=== PATIENT | female | born 1980 | race Caucasian/White ===

== ENCOUNTER 2017-09-23 09:42 | Outpatient (CLI) | payer BC | END 2017-09-23 09:43 | disposition home or self-care (01) | LOC: DTY/OP 09:42 | PROVIDERS: ATTEND Surgery | DX: E66.01 Morbid (severe) obesity due to excess calories (principal) | CPT/HCPCS: 97802 ==

== ENCOUNTER 2017-10-14 09:34 | Outpatient (CLI) | payer BC | END 2017-10-14 09:35 | disposition home or self-care (01) | LOC: DTY/OP 09:34 | PROVIDERS: ATTEND Surgery | DX: E66.01 Morbid (severe) obesity due to excess calories (principal) | CPT/HCPCS: 97802 ==

== ENCOUNTER 2017-10-28 12:39 | Outpatient (CLI) | payer BC ==
[2017-10-28 13:42] LABS: #Eosinphils 0.1 thou/uL (0.0-0.7); #Lymphocytes 1.9 thou/uL (1.20-3.40); #Monocytes 0.4 thou/uL (0.11-0.59); #Neutrophils 2.5 thou/uL (1.40-6.50); %Basophils 0.5 % (0.0-1.0); %Eosinophils 1.5 % (0.0-10.0); %Lymphocytes 39.3 % (21.0-51.0); %Monocytes 7.7 % (0.0-10.0); Hemoglobin 13.7 g/dL (12.0-16.0); Mean Corpuscular HGB CONC 32.6 g/dL (32.0-36.0); Mean Corpuscular Hemoglobin 28.6 pg (27.0-31.0); Mean Corpuscular Volume 87.6 fl (81.0-99.0); Mean Platelet Volume 7.4 fL (7.4-10.4); Platelet Count 249 thou/uL (130-400); RBC Distribution Width 14.6 % (11.5-14.5); Red Blood Cell (RBC) Count 4.78 mill/uL (4.20-5.40); White Blood Cell (WBC) Count 4.9 thou/uL (4.8-10.8)
--- NOTE | 2017-10-28 13:45 | RAD ---
TWO VIEW CHEST: CLINICAL INDICATIONS: Preoperative evaluation. COMPARISON: 09/11/2017 FINDINGS: Stable elevation of right hemidiaphragm. The lungs are clear. The cardiac silhouette is at the uppe r limits of normal in size and stable appearing. IMPRESSION: No focal consolidation. POS: [facility]
[2017-10-28 13:59] LABS: Hemoglobin A1c 4.9 % (4.0-6.0)
[2017-10-28 14:07] LABS: BHCG - Serum Negative (NEGATIVE); Pregs Control Background? CLEAR/WHITE (CLR/WHITE); Pregs Control Bar Appear? YES (CONTROL BAR)
[2017-10-28 14:15] LABS: ALT (SGPT) 88 U/L (8-55); AST (SGOT) 54 U/L (5-34); Albumin 3.8 g/dL (3.5-5.0); Alkaline Phosphatase 75 U/L (40-150); Anion Gap 9 mmol/L (10-20); BUN (Urea Nitrogen) 7 mg/dL (7.0-18.7); Bilirubin, Direct 0.2 mg/dL (0.1-0.3); Bilirubin, Total 0.6 mg/dL (0.2-1.2); Calc. Creatinine Clearance 0 mL/min (70-130); Calcium 8.8 mg/dL (7.8-10.44); Carbon Dioxide 28 mmol/L (22-29); Chloride 106 mmol/L (98-107); Estimated GFR-MDRD 80; Globulin 2.6 g/dL (2.4-3.5); Glucose 93 mg/dL (70-105); Potassium 4.3 mmol/L (3.5-5.1); Protein, Total 6.4 g/dL (6.0-8.3); Sodium 139 mmol/L (136-145)
== END 2017-10-28 12:40 | disposition home or self-care (01) ==
LOC: LABBT 12:39
PROVIDERS: ATTEND Surgery
DX: Z01.818 Encounter for other preprocedural examination (principal); E66.01 Morbid (severe) obesity due to excess calories
CPT/HCPCS: 71046; 80053; 80076; 83036; 84703; 85025; 93005; 93010

== ENCOUNTER 2017-10-28 13:00 | Inpatient (IN) | payer BC ==
[2017-10-28 12:54] VITALS: BMI 76.5
[2017-11-03] MEDS ORDERED: Heparin 5,000 UNITS/ML VIAL ONE (08:00)
[2017-11-03] MEDS ORDERED: CEFAZOLIN/Water 2 GM/20 ML SYRINGE ONE (08:00)
[2017-11-03] MEDS ORDERED: tiZANidine HCl 4 MG TAB ONE (09:15)
[2017-11-03] MEDS ORDERED: Ondansetron ODT 4 MG TAB ONE (09:16)
== END 2017-11-03 10:15 | disposition home or self-care (01) | DRG 641 ==
LOC: SURG A 11-03 07:28
PROVIDERS: ADMIT Surgery; ATTEND Surgery
DX: E66.01 Morbid (severe) obesity due to excess calories (principal); I34.0 Nonrheumatic mitral (valve) insufficiency; Z53.8 Procedure and treatment not carried out for other reasons; J02.0 Streptococcal pharyngitis; Z68.45 Body mass index [BMI] 70 or greater, adult; J45.909 Unspecified asthma, uncomplicated; I87.2 Venous insufficiency (chronic) (peripheral); Z91.040 Latex allergy status
CPT/HCPCS: J1644; Q0162

== ENCOUNTER 2017-12-01 06:25 | Inpatient (IN) | payer BC ==
[2017-11-30 09:42] VITALS: BMI 74.4
[2017-12-01] MEDS ORDERED: Bupivacaine/Epinephrine 0.25% 30 ML VIAL ONE (06:30)
[2017-12-01] MEDS ORDERED: Heparin 5,000 UNITS/ML VIAL ONE (06:56)
[2017-12-01] MEDS ORDERED: CEFAZOLIN/Water 2 GM/20 ML SYRINGE ONE (06:56)
[2017-12-01] MEDS ORDERED: Midazolam HCl 2 mg/2 ml Vial ONE (07:15)
[2017-12-01] MEDS ORDERED: Fentanyl 100 MCG/2 ML VIAL ONE (07:15)
[2017-12-01] MEDS ORDERED: Promethazine HCl 25 MG/ML VIAL SLOW IVP PRN (09:23)
[2017-12-01] MEDS ORDERED: Promethazine HCl 25 MG/ML VIAL IM PRN ×3 (09:23→11:52)
[2017-12-01] MEDS ORDERED: Ondansetron HCl/PF 4 MG/2 ML Vial IVP PRN ×2 (09:23→11:52)
[2017-12-01] MEDS ORDERED: Zolpidem Tartrate 5 MG TAB PO PRN (09:39)
[2017-12-01] MEDS ORDERED: diphenhydrAMINE 50 MG/ML VIAL IM PRN (09:39)
[2017-12-01] MEDS ORDERED: diphenhydrAMINE 25 MG CAP PO PRN (09:39)
[2017-12-01] MEDS ORDERED: Fentanyl 5000 MCG/250 ML CADD IVPB PRN (09:39)
[2017-12-01] MEDS ORDERED: Naloxone HCl 0.4 mg/ml Vial IV PRN (09:39)
[2017-12-01] MEDS ORDERED: diphenhydrAMINE 50 MG/ML VIAL IVP PRN ×2 (09:39→11:52)
[2017-12-01] MEDS ORDERED: Communication Order-Pharmacy FS SCH (09:45)
[2017-12-01] MEDS ORDERED: fentaNYL Citrate/PF 2,000 MCG in Sodium Chloride 0.9% 60 ML IV PRN (10:00)
[2017-12-01] MEDS ORDERED: Dextrose 50% Abboject 50 ML SYRINGE SLOW IVP PRN (11:52)
[2017-12-01] MEDS ORDERED: Dextrose 5% in Water 1,000 ML IV PRN (11:52)
[2017-12-01] MEDS ORDERED: Hydrocodone-Acetamin 15 ML UDCUP PO PRN (11:52)
[2017-12-01] MEDS: Acetaminophen 1,000 MG in Premix Bag 1 BAG IVPB SCH ×2 (12:21→18:56)
[2017-12-01] MEDS: D5 1/2 NS w/20 mEq KCL 1,000 ML IV SCH ×2 (12:22→21:12)
[2017-12-01] MEDS: Ondansetron HCl/PF 4 MG/2 ML Vial IVP PRN (12:55)
--- NOTE | 2017-12-01 13:29 | OP ---
DATE OF PROCEDURE: 12/01/2017 PREOPERATIVE DIAGNOSIS: Super morbid obesity with a body mass index of 77. POSTOPERATIVE DIAGNOSIS: Super morbid obesity with a body mass index of 77. PROCEDURES: 1. Laparoscopic sleeve gastrectomy with [place] staple line reinforcements and 38 [place] bougie. 2. EGD. SURGEON: Mich Contreras M.D. ANESTHESIA: General. ESTIMATED BLOOD LOSS: 50 mL COMPLICATIONS: None. FINDINGS: Normal postoperative esophagogastroduodenoscopy. INDICATION: The patient is a 37-year-old female who presents for weight loss surgery. She has under gone preop weight loss as well as an extensive diet program. She understands risks, benefits specifi c to sleeve as well as alternatives for weight loss. PROCEDURE IN DETAIL: The patient was taken to the operating room and placed supine on the table. Af ter general anesthetic was obtained, the arms, legs are double strapped to bariatric table. Left sub costal 5-mm Optiview trocar was placed and high-flow pneumoperitoneum was obtained. Right abdominal subcostal 5 mm port was placed under direct visualization as well. The 12-mm ports were placed down near the umbilicus under direct visualization. High-flow pneumoperitoneum was obtained. Placed in r everse Trendelenburg position. Criss retractor was brought in through a 5-cm incision made at th e xiphoid used to raise the liver off the GE junction. Because of the patient's body habitus and the thickness of her abdominal wall, an additional three 5-mm ports had to be placed in between the xiph oid and the above-mentioned 12 ports. Short gastrics were taken down to a distance of 5 cm from the pylorus and all the way to the left penny, angle of His, posterior fundus was all completely dissected . There was no hiatal hernia. OG tube was used to decompress the stomach then removed and a 38 boug ie was brought in and its tip left in the antrum of the stomach. Multiple loads of an [place] stapli ng device with [place] staple line reinforcements were used to form the sleeve. The first was a green l oad fired up at distance of 6 cm proximal to the pylorus angled up to the incisura. Care was taken t o avoid being too close to incisura. Multiple loads were fired up along the bougie, stomach was comp letely transected at the angle of His. The stomach was removed from the left abdominal incision. Th is fascial defect was closed using GraNee needle and 0 Vicryl tie. EGD scope was passed into the eso phagus, stomach to the level of the duodenum without obstruction or stricture. There was no air leak age through the staple line. EGD scope was used to decompress the stomach, it was pulled and removed . All port sites were infiltrated using local anesthetic. All ports were removed under camera visua lization and pneumoperitoneum was let down. All incisions were closed using 4-0 Monocryl and Dermabo nd. The patient was en route to recovery in stable condition. All instrument counts, needle counts, lap counts are correct.
[2017-12-01] MEDS ORDERED: PROPOFOL 200 MG/20 ML VIAL ONE (14:33)
[2017-12-01] MEDS ORDERED: Glycopyrrolate 0.2 MG/ML 5 ML SYRINGE ONE (14:33)
[2017-12-01] MEDS ORDERED: Dexamethasone 20 MG/5 ML VIAL ONE (14:33)
[2017-12-01] MEDS: CEFAZOLIN/Water 2 GM/20 ML SYRINGE SLOW IVP SCH ×2 (14:39→21:12)
[2017-12-01] MEDS: Enoxaparin Sodium 40 MG/0.4 ML SYRINGE SC SCH (21:12)
[2017-12-01] MEDS: hydrALAZINE 20 MG/ML VIAL SLOW IVP PRN (21:30)
[2017-12-02] MEDS: Acetaminophen 1,000 MG in Premix Bag 1 BAG IVPB SCH (00:40)
[2017-12-02] MEDS: Ondansetron HCl/PF 4 MG/2 ML Vial IVP PRN (04:21)
[2017-12-02] MEDS: D5 1/2 NS w/20 mEq KCL 1,000 ML IV SCH ×3 (05:41→21:03)
[2017-12-02 05:49] LABS: #Monocytes 0.5 thou/uL (0.11-0.59); #Neutrophils 8.7 thou/uL (1.40-6.50); %Basophils 0.3 % (0.0-1.0); %Eosinophils 0.3 % (0.0-10.0); %Lymphocytes 10.1 % (21.0-51.0); %Monocytes 4.5 % (0.0-10.0); %Neutrophils 84.8 % (42.0-75.0); Hemoglobin 12.4 g/dL (12.0-16.0); Mean Corpuscular HGB CONC 32.7 g/dL (32.0-36.0); Mean Corpuscular Hemoglobin 28.2 pg (27.0-31.0); Mean Corpuscular Volume 86.4 fl (81.0-99.0); Mean Platelet Volume 7.1 fL (7.4-10.4); Platelet Count 306 thou/uL (130-400); RBC Distribution Width 13.9 % (11.5-14.5); Red Blood Cell (RBC) Count 4.41 mill/uL (4.20-5.40); White Blood Cell (WBC) Count 10.3 thou/uL (4.8-10.8)
[2017-12-02 06:26] LABS: Anion Gap 12 mmol/L (10-20); BUN (Urea Nitrogen) 6 mg/dL (7.0-18.7); Calc. Creatinine Clearance 334 mL/min (70-130); Calcium 8.3 mg/dL (7.8-10.44); Carbon Dioxide 23 mmol/L (22-29); Chloride 103 mmol/L (98-107); Estimated GFR-MDRD Greater than 90; Glucose 126 mg/dL (70-105); Potassium 3.9 mmol/L (3.5-5.1); Sodium 134 mmol/L (136-145)
[2017-12-02] MEDS: Pantoprazole 40 MG VIAL IVP SCH (11:57)
[2017-12-02] MEDS ORDERED: Fentanyl 100 MCG/2 ML VIAL SLOW IVP PRN (12:53)
[2017-12-02] MEDS ORDERED: Scopolamine 1.5 mg/72 hour Patch TOP SCH (16:15)
[2017-12-02] MEDS: Enoxaparin Sodium 40 MG/0.4 ML SYRINGE SC SCH (21:02)
[2017-12-03] MEDS: D5 1/2 NS w/20 mEq KCL 1,000 ML IV SCH ×3 (03:55→16:56)
[2017-12-03] MEDS: hydrALAZINE 20 MG/ML VIAL SLOW IVP PRN ×2 (08:50→16:55)
[2017-12-03] MEDS: Pantoprazole 40 MG VIAL IVP SCH (08:50)
--- NOTE | 2017-12-03 09:09 | PRG ---
DATE OF SERVICE: 12/03/2017 SUBJECTIVE: Ms. Bello is postoperative day #2 from a sleeve gastrectomy performed by Dr. Contreras. S he was not discharged yesterday secondary to nausea and vomiting, inability to tolerate adequate oral intake. She tells me that she continues to have problems with this. She tells me that her incision s really do not bother her very much, but she has pain from the vomiting. She notes froth as well as , what she believes is, bile within her vomit. She believes that much more comes up then she is able to keep down. She is up and walking. OBJECTIVE: VITAL SIGNS: On examination, she is afebrile, pulse is 81, blood pressure 172/108. LUNGS: Clear to auscultation. ABDOMEN: Massively obese, but incisions are healing nicely and abdomen appears to be nontender. LABORATORY STUDIES: There are no additional labs obtained today. ASSESSMENT: Patient with persistent nausea and vomiting after a sleeve gastrectomy 2 days ago. She has been started on scopolamine patch. Given her frothing, I will try a course of Reglan and start h er on some IV metoclopramide. I am going to obtain a swallow study to see if this would shed any lig ht on why she is having problems. She is encouraged to continue ambulating. Depending on what the s wallow study shows, consideration may be given to a course of steroids to help with inflammation as w ell as nausea.
--- NOTE | 2017-12-03 10:12 | RAD ---
A 15 ML SWALLOW: HISTORY: Status post postop day 1 for gastric sleeve. FINDINGS: The patient was administered 15 mL of Gastrografin. No delay in passage of Gastrografin from the eso phagus into the residual stomach. No leak. No extravasation. IMPRESSION: No leak or extravasation. POS: [facility]
[2017-12-03] MEDS: Metoclopramide HCl 10 MG/2 ML VIAL IVP SCH ×2 (10:47→16:56)
[2017-12-03] MEDS ORDERED: Gadobenate Dimeglumine 529 MG/1 ML (20ML VIAL) ONE (13:32)
[2017-12-03] MEDS: Enoxaparin Sodium 40 MG/0.4 ML SYRINGE SC SCH (22:01)
[2017-12-04] MEDS: Metoclopramide HCl 10 MG/2 ML VIAL IVP SCH ×2 (00:24→05:28)
[2017-12-04] MEDS: D5 1/2 NS w/20 mEq KCL 1,000 ML IV SCH (05:16)
[2017-12-04 05:47] LABS: #Basophils 0.1 thou/uL (0.0-0.2); #Lymphocytes 2.2 thou/uL (1.20-3.40); #Monocytes 0.6 thou/uL (0.11-0.59); %Basophils 0.7 % (0.0-1.0); %Eosinophils 0.6 % (0.0-10.0); %Lymphocytes 27.5 % (21.0-51.0); %Monocytes 7.8 % (0.0-10.0); %Neutrophils 63.5 % (42.0-75.0); Mean Corpuscular HGB CONC 32.2 g/dL (32.0-36.0); Mean Corpuscular Hemoglobin 28.4 pg (27.0-31.0); Mean Corpuscular Volume 88.2 fl (81.0-99.0); Mean Platelet Volume 7.2 fL (7.4-10.4); Platelet Count 298 thou/uL (130-400); RBC Distribution Width 13.9 % (11.5-14.5); Red Blood Cell (RBC) Count 4.24 mill/uL (4.20-5.40); White Blood Cell (WBC) Count 7.8 thou/uL (4.8-10.8)
[2017-12-04 05:56] LABS: Anion Gap 11 mmol/L (10-20); BUN (Urea Nitrogen) 4 mg/dL (7.0-18.7); Calc. Creatinine Clearance 339 mL/min (70-130); Calcium 8.3 mg/dL (7.8-10.44); Carbon Dioxide 26 mmol/L (22-29); Chloride 106 mmol/L (98-107); Estimated GFR-MDRD Greater than 90; Glucose 120 mg/dL (70-105); Potassium 3.9 mmol/L (3.5-5.1); Sodium 139 mmol/L (136-145)
[2017-12-04 07:53] VITALS: BP 146/82; TEMP 98
[2017-12-04] MEDS: Pantoprazole 40 MG VIAL IVP SCH (07:55)
--- NOTE | 2017-12-04 10:13 | PRG ---
DATE OF SERVICE: 12/04/2017 PREOPERATIVE DIAGNOSIS: Morbid obesity. POSTOPERATIVE DIAGNOSIS: Morbid obesity. OPERATION PERFORMED: Laparoscopic sleeve gastrectomy per Dr. Contreras. HOSPITAL COURSE: The patient had an uneventful surgery, although it was challenging secondary to her high weight (BMI of 74). Postoperatively, she has had no hemodynamic issues; however, she had nause a, vomiting, dry heaves, and inability to tolerate adequate oral intake for the first couple of days. Today, is postoperative day #3. Yesterday, I obtained a swallow study, which was unremarkable. I started her on scheduled Reglan as well. As of today, she seems to be tolerating adequate oral intak e. She does have some occasional frothing, but is in general tolerating her clear liquids adequately . Her vital signs remained entirely within normal limits. I rechecked laboratory studies today and her CBC and metabolic panel are normal. Her examination is also unremarkable. She is discharged elva e today. She may take her oral hydrocodone if she needs it, but I encouraged her to avoid this if sh e can, as it will likely exacerbate problems with nausea and vomiting. She is to follow up with Dr. Contreras in a couple of weeks for routine scheduled followup.
== END 2017-12-04 10:24 | disposition home or self-care (01) | DRG 621 ==
LOC: SURG A 06:25
PROVIDERS: ADMIT Surgery; ATTEND Surgery
PROC: 0DB64Z3 Excision of Stomach, Percutaneous Endoscopic Approach, Vertical (ICD-10-PCS; principal; 2017-12-01)
PROC: 0DJ08ZZ Inspection of Upper Intestinal Tract, Via Natural or Artificial Opening Endoscopic (ICD-10-PCS; 2017-12-01)
DX: E66.01 Morbid (severe) obesity due to excess calories (principal); Z68.45 Body mass index [BMI] 70 or greater, adult; Z71.3 Dietary counseling and surveillance; R11.0 Nausea
CPT/HCPCS: 36415; 74241; 80048; 85025; 88307; 88312; 94760; A9579; C9113; J0131; J0360; J1100; J1200; J1644; J1650; J2250; J2405; J2550; J2704; J2765; J3010; J7050

== ENCOUNTER 2018-01-15 02:30 | Observation (INO) | payer BC ==
[2018-01-15 03:44] LABS: #Basophils 0.1 thou/uL (0.0-0.2); #Lymphocytes 1.6 thou/uL (1.20-3.40); #Monocytes 0.6 thou/uL (0.11-0.59); #Neutrophils 4.9 thou/uL (1.40-6.50); %Basophils 0.8 % (0.0-1.0); %Eosinophils 0.3 % (0.0-10.0); %Lymphocytes 22.6 % (21.0-51.0); %Monocytes 8.7 % (0.0-10.0); %Neutrophils 67.5 % (42.0-75.0); Hemoglobin 12.5 g/dL (12.0-16.0); Mean Corpuscular HGB CONC 33.7 g/dL (32.0-36.0); Mean Corpuscular Hemoglobin 29.4 pg (27.0-31.0); Mean Corpuscular Volume 87.4 fL (78.0-98.0); Mean Platelet Volume 7.3 fL (7.4-10.4); Platelet Count 225 thou/uL (130-400); RBC Distribution Width 14.2 % (11.5-14.5); Red Blood Cell (RBC) Count 4.24 mill/uL (4.20-5.40); White Blood Cell (WBC) Count 7.2 thou/uL (4.8-10.8)
[2018-01-15 04:06] LABS: ALT (SGPT) 29 U/L (8-55); AST (SGOT) 24 U/L (5-34); Albumin 3.4 g/dL (3.5-5.0); Alkaline Phosphatase 92 U/L (40-150); Anion Gap 13 mmol/L (10-20); BUN (Urea Nitrogen) 5 mg/dL (7.0-18.7); Bilirubin, Total 1.1 mg/dL (0.2-1.2); CK (CPK) 37 U/L (29-168); Calc. Creatinine Clearance 0 mL/min (70-130); Calcium 8.4 mg/dL (7.8-10.44); Carbon Dioxide 21 mmol/L (22-29); Chloride 103 mmol/L (98-107); Estimated GFR-MDRD Greater than 90; Globulin 3.2 g/dL (2.4-3.5); Glucose 112 mg/dL (70-105); Lipase Less than 4 U/L (8-78); Potassium 4.1 mmol/L (3.5-5.1); Protein, Total 6.6 g/dL (6.0-8.3); Sodium 133 mmol/L (136-145)
[2018-01-15] MEDS ORDERED: Promethazine HCl 25 MG/ML VIAL ONE (05:11)
[2018-01-15 07:07] LABS: Bilirubin Negative (Negative); Blood, Urine Negative (Negative); Clarity CLEAR (Clear); Glucose, Urine (Dipstick) Negative (Negative); Leukocyte Small (Negative); Nitrite Negative (Negative); Protein, Urine (Dipstick) Negative (Neg-Trace); Specific Gravity, Urine 1.018 (1.002-1.036); Urobilinogen 0.2 mg/dL (0.2-1.0); pH, Urine 5.5 (5.0-9.0)
[2018-01-15 07:09] LABS: Bacteria/HPF Rare-Few HPF (None Seen); Hyaline Casts/LPF 4-6 HYALINE CAST LPF (0-3 Hyaline); Pathc Cast-AUWi Flag 0.58 (0-2.49); RBC/HPF 0-3 HPF (0-3)
[2018-01-15] MEDS ORDERED: Enoxaparin Sodium 100 MG/ML SYRINGE ONE (09:36)
[2018-01-15] MEDS ORDERED: Enoxaparin Sodium 80 MG/0.8 ML SYRINGE ONE (09:36)
[2018-01-15] MEDS ORDERED: hydrALAZINE 20 MG/ML VIAL SLOW IVP PRN (10:32)
[2018-01-15] MEDS ORDERED: Ondansetron ODT 4 MG TAB PO PRN (10:36)
[2018-01-15] MEDS ORDERED: Ibuprofen 600 MG TAB PO PRN (10:36)
[2018-01-15] MEDS ORDERED: Ondansetron ODT 8 MG TAB PO PRN (10:36)
[2018-01-15] MEDS ORDERED: Ondansetron ODT 8 MG TAB SL PRN (10:36)
[2018-01-15] MEDS ORDERED: Ondansetron ORAL SOLN. 4 MG/5 ML UDCUP PO PRN ×2 (10:36)
--- NOTE | 2018-01-15 11:17 | ULT ---
BILATERAL LOWER EXTREMITY VENOUS ULTRASOUND: COMPARISON: None. HISTORY: Status post gastric sleeve procedure with bilateral lower extremity edema and elevated D-dimer. TECHNIQUE: Multiplanar, gonzalez scale, and color Doppler images were obtained in a bilateral lower extremity venous ultrasound. Spectral analysis of the Doppler waveforms was performed. FINDINGS: The bilateral common femoral veins, profunda femoral veins, superficial femoral veins, and popliteal veins are normal in appearance without visible thrombus. These vessels demonstrate normal compressio n, flow, and augmentation. The posterior tibial veins and greater saphenous veins are also patent. IMPRESSION: No evidence of deep vein thrombosis. POS: [facility]
--- NOTE | 2018-01-15 11:23 | RAD ---
PA AND LATERAL CHEST XRAY: DATE: 01/15/18. HISTORY: Abdominal pain post gastric sleeve procedure on January 01, 2018. Fever. FINDINGS: There is parenchymal opacity seen at the lateral left lung base, which is in the left lower lobe, mos t likely related to pneumonia. The right lung is clear. There is mild elevation of the right hemidi aphragm. Cardiac silhouette and pulmonary vasculature are within normal limits. Osseous structures are intact. IMPRESSION: Left lower lobe pneumonia. Followup to complete resolution is recommended. POS: [facility]
--- NOTE | 2018-01-15 12:18 | HP ---
HISTORY OF PRESENT ILLNESS: Monet Bello is a 37-year-old female, morbidly obese, six weeks status post 12/01/2017 laparoscopic sleeve gastrectomy, referred by Dr. Contreras. Preoperative BMI 77 , 428 pounds; currently 68 BMI, 397 pounds when last seen by Dr. Contreras, although more recently she states she weighed 410 pounds. The patient states she is doing well, progressing our bariatric diet protocol, consuming bariatric regular diet, but she began experiencing the last day or two cough and fever to 103 degrees. She presents to the emergency room, evaluated by Dr. Patel. She began having some left flank pain. She states that she did not think she had anything such as a bariatric sleeve leak because she did not have abdominal pain or tachycardia. She was found on CT scan of abdomen an d pelvis to have a left lower lobe density. D-dimer was elevated. Consideration for a CT angio was given, but could not be performed today due to contrast load issues and would have to be postponed to tomorrow. The patient denies dyspnea. She denies pain in her calves. Plan is to admit her to the hospital with therapeutic Lovenox, intravenous antibiotics, Pulmonary Critical Care Medicine consulta tion to determine whether she really needs a CT angio tomorrow or not and she really needs anticoagul ation. We will await Dr. Collazo's opinion. More than likely, she will be discharged home in 24 to 48 hours on oral antibiotics. ALLERGIES: None. TOBACCO: None. ALCOHOL: None. MEDICATIONS: Vitamins and protein supplements. PAST SURGICAL HISTORY: Laparoscopic cholecystectomy, laparoscopic sleeve gastrectomy. PAST MEDICAL HISTORY: Morbid obesity. SOCIAL HISTORY: Patient lives in [place]. She has been helping care for her mother in [place]. REVIEW OF SYSTEMS: Ten point noncontributory. PHYSICAL EXAMINATION: VITAL SIGNS: Heart rate 80, respiratory rate 21, blood pressure 140/80. HEAD, EARS, EYES, NOSE, AND THROAT: Unremarkable. No distress. LUNGS: Clear to auscultation. CARDIAC: Regular rate and rhythm without murmur or gallop. ABDOMEN: Soft, nontender. Laparoscopic wounds well healed. EXTREMITIES: Unremarkable. Negative Homans sign. Neurologically intact. No lymphadenopathy in nec k, groins, axilla. Skin turgor normal. No focal deficits. LABORATORY DATA: Sodium 133, potassium 4.1, carbon dioxide 21, BUN 5, glucose 112, lipase less than 4. White count 7, hemoglobin 12. D-dimer 1.47. Note, cardiac stress test normal June 2014. ASSESSMENT AND PLAN: Fever, left lower lobe infiltrates seen on CAT scan of abdomen and pelvis. We will obtain PA and lateral chest x-ray. We will consult Dr. Collazo. She has received a therapeutic dose of Lovenox and she has received Levaquin 750 mg IV, which will keep her on depending Dr. Guera johnson's consultation. We will let Dr. Collazo decide whether we need to continue therapeutic Lovenox or whether she needs a CT angio tomorrow. Expect discharge home in 24-36 hours.
[2018-01-15] MEDS ORDERED: ISOVUE-370 76%-LOCM 1 ML ONE (12:19)
[2018-01-15] MEDS: Acetaminophen 500 MG TAB PO PRN ×2 (12:38→20:53)
[2018-01-15 13:41] VITALS: BMI 82.0
--- NOTE | 2018-01-15 14:25 | CT ---
PRELIMINARY REPORT/[facility]/EMERGENTY AFTER-HOURS PROCEDURE CT Abdomen and Pelvis With Intravenous Contrast CLINICAL HISTORY: 37 years old, female; Pain; Abdominal pain; Generalized; Patient HX: History provided by patient, andrei presents to ed C/O post op for gastric sleeve. PT reports she was very swollen, especially in her le gs, and her l abd hurts. She reports she feels hot to the touch, but she is very cold. Reports her sc ars are doing well, but have grown darker in color. PT reports her oral temp is normal, but axillary is 102. / gastric sleeve /leak eval TECHNIQUE: Axial computed tomography images of the abdomen and pelvis with intravenous contrast. Coronal reforma tted images were created and reviewed. COMPARISON: No relevant prior studies available. FINDINGS: Lower thorax: There is a large peripheral wedge-shaped area of consolidation in the left lower lobe, most likely representing infectious pneumonia; however, pulmonary infarction can also have this appea cathy. ABDOMEN: Liver: Normal. No mass. Gallbladder and bile ducts: Prior cholecystectomy. Pancreas: Normal. No ductal dilation. Spleen: Normal. No splenomegaly. Adrenals: Normal. No mass. Kidneys and ureters: 3.6 low attenuation right renal lesion does not meet strict CT criteria for a cy st and is indeterminate, potentially a hyperdense cyst. Kidneys are otherwise unremarkable. Stomach and bowel: Normal -appearing stomach status post gastric sleeve. Appendix: Appendix not visualized. No evidence of appendicitis. PELVIS: Bladder: Unremarkable as visualized. Reproductive: 2.5 cm dominant follicle/cyst of the left ovary. ABDOMEN and PELVIS: Intraperitoneal space: Normal. No free air. No significant fluid collection. Bones/joints: No acute fracture. No dislocation. Soft tissues: Unremarkable. Vasculature: Normal. No abdominal aortic aneurysm. Lymph nodes: Normal. No enlarged lymph nodes. IMPRESSION: 1. There is a large peripheral wedge-shaped area of consolidation in the left lower lobe, most likely representing infectious pneumonia; however, pulmonary infarction can also have this appearance. Cons ider CTA to evaluate remainder of the lungs and to evaluate for PE. 2. Normal -appearing stomach status post gastric sleeve. 3. 2.5 cm dominant follicle/cyst of the left ovary. Thank you for allowing us to participate in the care of your patient. Dictated and Authenticated by: Jean Sood MD 01/15/2018 7:02 AM Central Time ([place] & [place]) FINAL REPORT EMERGENT AFTER HOURS CT OF THE ABDOMEN AND PELVIS WITH CONTRAST: FINDINGS/IMPRESSION: I agree with the findings and impression given in the preliminary report per [facility] physician. 1. No evidence of acute intraabdominal/pelvic abnormality. 2. Right renal cyst. 3. Both ovaries are prominent with a dominant follicle seen in the left ovary. 4. Consolidation versus atelectasis in the left lower lobe. POS: [facility]
--- NOTE | 2018-01-15 18:26 | CON ---
DATE OF CONSULTATION: 01/15/2018 SERVICE: Pulmonary Medicine. REASON FOR CONSULTATION: Abnormal chest x-ray. HISTORY OF PRESENT ILLNESS: The patient is a 37-year-old white female with past medical history significant for recent gastric sleeve surgery. She is 7 weeks postop. About a week ago, she started having some pleuritic chest discomfort and left flank. It progressed and she started having 103 degrees fevers. She presented to the emergency department and was ultimately discovered to have an infiltrate on the CT of the chest. That being said, the appearance of it could not differentiate between like pulmonary embolism with infarction versus a pneumonia. This was identified on a CT of the abdomen and pelvis. Contrast was used to make certain there was no leak. There is no acute abdominal issue. Ultrasound of the lower extremities was performed. That being said, they were unremarkable. Her chest x-ray was also unremarkable. We are trying to answer the question of whether or not she has a PE moving forward, but because of her weight, she cannot have a VQ scan. I do not want a repeat contrast load so soon. PAST MEDICAL HISTORY: Morbid obesity. PAST SURGICAL HISTORY: 1. Laparoscopic cholecystectomy. 2. Laparoscopic sleeve gastrectomy, postop week 7. ALLERGIES: No known drug allergies. MEDICATIONS: List of inpatient medications were reviewed. Couple of small updates were made. SOCIAL HISTORY: Negative for alcohol, tobacco or illicit drug use. She lives in [place]. She helps care for her mother. FAMILY HISTORY: Noncontributory. REVIEW OF SYSTEMS: General, head, ears, eyes, nose, throat, cardiovascular, respiratory, GI, , musculoskeletal, neurologic and skin is negative except as mentioned in the HPI. PHYSICAL EXAMINATION: VITAL SIGNS: Currently afebrile. T-max has been 102.2, pulse 90, blood pressure 131/81, respirations 16, saturation 98% on room air. GENERAL: The patient is awake, alert, in no apparent distress. LUNGS: Rhonchi are present in the left base, outside of she is clear to auscultation. There is no prolonged expiratory phase or wheezing appreciated. HEART: Normal rate, regular. ABDOMEN: Soft, nontender, nondistended. Bowel sounds are positive. MUSCULOSKELETAL: No cyanosis or clubbing. There is no pitting in the bilateral lower extremities. NEUROLOGIC: Grossly nonfocal. LABORATORY DATA: WBC 7.2, hemoglobin 12.5, platelets 225,000. D-dimer 1.47. Basic metabolic profile, liver function studies are essentially unremarkable otherwise. Lactate 1.1. Urinalysis is unremarkable. IMAGIN. Chest x-ray demonstrates a left lower lobe pneumonia. 2. Ultrasound of bilateral lower extremities demonstrates no evidence of DVT. 3. CT of the abdomen and pelvis demonstrates normal belly. There is no significant leak present. She has a left lower lobe infiltrate. It cannot be distinguished between pneumonia or Jonas's hump. ASSESSMENT: 1. Pulmonary infiltrate. 2. Sepsis. 3. Community-acquired pneumonia, suspected. 4. Pulmonary embolism, possible. DISCUSSION AND PLAN: At this point, we clearly say whether or not a PE is present based on imaging criteria, or physical exam features. As such, we are going to treat both for the time being. She can be discharged on p.o. Levaquin. She needs to complete a 7-day course. In 2-3 days in the outpatient setting, we can pursue a CT of the chest with PE protocol. If this is normal, anticoagulation can be interrupted. We will empirically put her on a direct oral anticoagulant starting this evening and will interrupt our Lovenox. If she proves to have a PE in the outpatient setting, we will continue the blood thinner, and I will see her in clinic. Pulmonary Critical Care will continue to follow along if she remains in house, but from my perspective, she is stable for transition home. 70 minutes have been devoted to this patient in various activities. I personally reviewed all imaging studies and laboratory data noted within this document. For fifty percent of this time, I was interacting with the patient at the bedside or coordinating care with the care team. For the remainder of the time I was immediately available to the patient in the hospital unit. RONNI
[2018-01-15] MEDS: Apixaban 5 MG TAB PO SCH (20:54)
[2018-01-15] MEDS ORDERED: Enoxaparin Sodium 120 MG/0.8 ML SYRINGE SC SCH (21:00)
[2018-01-15] MEDS: Multivitamin W/ Minerals 1 TAB PO SCH (21:53)
[2018-01-16 05:09] LABS: Anion Gap 11 mmol/L (10-20); BUN (Urea Nitrogen) 7 mg/dL (7.0-18.7); Calc. Creatinine Clearance 355 mL/min (70-130); Calcium 8.2 mg/dL (7.8-10.44); Carbon Dioxide 23 mmol/L (22-29); Chloride 105 mmol/L (98-107); Estimated GFR-MDRD Greater than 90; Glucose 94 mg/dL (70-105); Potassium 3.6 mmol/L (3.5-5.1); Sodium 135 mmol/L (136-145)
[2018-01-16 06:05] LABS: #Lymphocytes 1.8 thou/uL (1.20-3.40); #Monocytes 0.5 thou/uL (0.11-0.59); #Neutrophils 3.2 thou/uL (1.40-6.50); %Basophils 0.6 % (0.0-1.0); %Eosinophils 0.7 % (0.0-10.0); %Lymphocytes 32.6 % (21.0-51.0); %Monocytes 8.7 % (0.0-10.0); %Neutrophils 57.5 % (42.0-75.0); Hemoglobin 11.6 g/dL (12.0-16.0); Mean Corpuscular Hemoglobin 29.1 pg (27.0-31.0); Mean Platelet Volume 7.9 fL (7.4-10.4); Platelet Count 169 thou/uL (130-400); White Blood Cell (WBC) Count 5.5 thou/uL (4.8-10.8)
[2018-01-16] MEDS: Multivitamin W/ Minerals 1 TAB PO SCH (08:16)
[2018-01-16] MEDS: Apixaban 5 MG TAB PO SCH (08:16)
[2018-01-16 08:21] VITALS: BP 126/73
[2018-01-16 08:23] VITALS: TEMP 99
--- NOTE | 2018-01-16 11:57 | DIS ---
ADMITTING DIAGNOSES: Left flank pain with a left pulmonary wedge-shaped infiltrate. Differential di agnoses including possible pneumonia versus pulmonary embolism. DISCHARGE DIAGNOSES: Left flank pain with a left pulmonary wedge-shaped infiltrate. Differential di agnosis including possible pneumonia versus pulmonary embolism. PROCEDURES: None. CONDITION AT DISCHARGE: Improved. STAFF: Dr. Mich Contreras/Dr. Shivam Collazo DISCHARGE MEDICATIONS: Eliquis to be taken for 5 more days twice a day at 10 mg then 5 mg twice a da y after that. BRIEF HISTORY: The patient is a 37-year-old female who is status post laparoscopic gastric sleeve ca me in with severe left flank pain. CT of the abdomen showed no obvious intra-abdominal pathology. H owever, she had a wedge-shaped infiltrate on her CT scan. Dr. Collazo, the chassis engineer, saw her. This area could not be an infiltrate such as pneumonia cannot be differentiated from a pulmonary embo lism. Due to her size, she cannot undergo VQ scan given the contrast load. It was elected not to re peat CT PE protocol. It was recommended to wait a few days, so the recommendation was to place her o n oral anticoagulants and oral antibiotics and have outpatient follow up CT PE protocol later on in t week. That is the plan. DISPOSITION: Referral center to my office will set her up for that outpatient CT chest with PE sara col. She is being discharged home on Eliquis and Levaquin.
== END 2018-01-16 11:00 | disposition home or self-care (01) ==
LOC: ERS 02:30 → SURG A 11:39
PROVIDERS: ADMIT Specialist; ATTEND Specialist
DX: R10.9 Unspecified abdominal pain (principal); R91.8 Other nonspecific abnormal finding of lung field; R07.89 Other chest pain; E66.01 Morbid (severe) obesity due to excess calories; Z68.45 Body mass index [BMI] 70 or greater, adult; Z79.899 Other long term (current) drug therapy; Z91.040 Latex allergy status; Z98.84 Bariatric surgery status
CPT/HCPCS: 36415; 71046; 74177; 80048; 80053; 81003; 81015; 82550; 83605; 83690; 85025; 85379; 87040; 87086; 93970; 96361; 96365; 96372; G0378; J1650; J1956; J2550

== ENCOUNTER 2018-01-20 13:32 | Outpatient (CLI) | payer BC, OTHER ==
[~2018-01-20 13:32] MED LIST: Iopamidol 370 76% 100 ML VIAL ONE
--- NOTE | 2018-01-20 15:50 | CT ---
CT ANGIO CHEST WITH CONTRAST: INDICATIONS: Evidence of atelectasis or infiltrate in the left lower lobe seen on CT scan from 01/15/2018. TECHNIQUE: Multiple axial tomograms obtained through the chest following pulmonary angio protocol with multiplan ar reconstruction and 3D post processing. FINDINGS: The pulmonary arteries are suboptimally opacified; however, there is no evidence of a proximal pulmon danny embolus. There is no evidence of embolus seen to the segmental level. Review of the lung shafer reveals patchy alveolar infiltrative changes in the posterior left lower lo be. There is nonspecific left perihilar adenopathy with lymph nodes in this region measuring up to 2 cm. Images through the upper abdomen are unremarkable. IMPRESSION: 1. No evidence of pulmonary embolus to the segmental level. 2. Patchy alveolar infiltrate in the left lower lobe with associated left perihilar adenopathy. Findings were relayed to Dr. Contreras. CODE CR POS: [facility]
== END 2018-01-20 13:33 | disposition home or self-care (01) ==
LOC: CT 13:32
PROVIDERS: ATTEND Surgery
DX: I26.99 Other pulmonary embolism without acute cor pulmonale (principal); R59.0 Localized enlarged lymph nodes; R91.8 Other nonspecific abnormal finding of lung field
CPT/HCPCS: 71275

== ENCOUNTER 2018-07-23 21:28 | Emergency (ER) | payer BC ==
[2018-07-23 22:32] LABS: Bilirubin Negative (Negative); Blood, Urine Large (Negative); Clarity CLOUDY (Clear); Glucose, Urine (Dipstick) Negative (Negative); Leukocyte Negative (Negative); Nitrite Negative (Negative); Protein, Urine (Dipstick) 30 mg/dL (Neg-Trace); Specific Gravity, Urine 1.017 (1.002-1.036); Urobilinogen 0.2 mg/dL (0.2-1.0); pH, Urine 8.5 (5.0-9.0)
[2018-07-23 22:33] LABS: Pregnancy Test - Urine (BHCG) Negative (Negative); Pregu Control Background? CLEAR/WHITE (CLR/WHITE); Pregu Control Bar Appear? YES (CONTROL BAR); Specific Gravity 1.017 (1.002-1.036)
[2018-07-23 22:35] LABS: Bacteria/HPF None Seen HPF (None Seen); Hyaline Casts/LPF 4-6 HYALINE CAST LPF (0-3 Hyaline); Pathc Cast-AUWi Flag 0.58 (0-2.49); RBC/HPF GREATER THAN 50-TNTC HPF (0-3)
[2018-07-23] MEDS ORDERED: Ketorolac Tromethamine 30 MG/ML VIAL ONE (22:47)
[2018-07-23] MEDS ORDERED: Ondansetron PF 4 MG/2 ML Vial ONE ×2 (22:47→22:56)
[2018-07-23 22:48] LABS: Squamous Epithelial 0-3 HPF (0-3)
[2018-07-23 22:54] LABS: #Basophils 0.1 thou/uL (0.0-0.2); #Lymphocytes 1.1 thou/uL (1.20-3.40); #Monocytes 0.2 thou/uL (0.11-0.59); #Neutrophils 8.9 thou/uL (1.40-6.50); %Basophils 0.8 % (0.0-1.0); %Eosinophils 0.2 % (0.0-10.0); %Lymphocytes 10.4 % (21.0-51.0); %Monocytes 1.5 % (0.0-10.0); %Neutrophils 87.2 % (42.0-75.0); Hemoglobin 13.9 g/dL (12.0-16.0); Mean Corpuscular HGB CONC 32.2 g/dL (32.0-36.0); Mean Corpuscular Hemoglobin 28.2 pg (27.0-31.0); Mean Corpuscular Volume 87.5 fL (78.0-98.0); Mean Platelet Volume 6.9 fL (7.4-10.4); Platelet Count 347 thou/uL (130-400); RBC Distribution Width 13.3 % (11.5-14.5); Red Blood Cell (RBC) Count 4.94 mill/uL (4.20-5.40); White Blood Cell (WBC) Count 10.2 thou/uL (4.8-10.8)
[2018-07-23 23:15] LABS: ALT (SGPT) 17 U/L (8-55); AST (SGOT) 17 U/L (5-34); Albumin 3.9 g/dL (3.5-5.0); Alkaline Phosphatase 104 U/L (40-150); Anion Gap 13 mmol/L (10-20); BUN (Urea Nitrogen) 5 mg/dL (7.0-18.7); Bilirubin, Total 0.4 mg/dL (0.2-1.2); Calc. Creatinine Clearance 0 mL/min (70-130); Calcium 8.8 mg/dL (7.8-10.44); Carbon Dioxide 23 mmol/L (22-29); Chloride 106 mmol/L (98-107); Estimated GFR-MDRD Greater than 90; Globulin 3.4 g/dL (2.4-3.5); Glucose 136 mg/dL (70-105); Potassium 4.1 mmol/L (3.5-5.1); Protein, Total 7.3 g/dL (6.0-8.3); Sodium 138 mmol/L (136-145)
[2018-07-24] MEDS ORDERED: Ondansetron PF 4 MG/2 ML Vial ONE (00:23)
--- NOTE | 2018-07-24 07:46 | CT ---
CT ABDOMEN WITHOUT CONTRAST CT PELVIS WITHOUT CONTRAST: COMPARISON: 01/15/2018. HISTORY: Previous bariatric surgery. Left flank pain. Emesis. FINDINGS: CT ABDOMEN: Dependent atelectatic changes. Normal heart size. No significant pericardial fluid. The descending thoracic aorta and abdominal aorta have a normal caliber. No periaortic fat stranding. Gallbladder is surgically absent. Limited evaluation of the solid organs due to lack of IV contrast administration. Grossly, no solid organ abnormality. No gastrohepatic, retrocrural, or periportal lymphadenopathy. Bilaterally, no evidence of nephrolithiasis. No evidence of right-sided obstructive uropathy. Exoph ytic hypodensity emanates from the upper pole of the right kidney, unchanged from the previous examin ation. Attenuation coefficient is 31 Hounsfield units. Better characterization of this lesion with nonemergent renal ultrasound is recommended. There is mild dilatation of the left intrarenal collecting system and proximal left ureter. There is a solitary calculus in the proximal left ureter measuring 4 mm in the craniocaudal dimension. Dista l to this calcification, the ureter is decompressed. No mesenteric mass, lymphadenopathy, free air, or free fluid. Limited evaluation of the alimentary canal by the lack of oral contrast. Bariatric surgical changes are noted. No evidence of bowel obstruction. Ileocecal junction is normal. Appendix is not appreci ated. No inflammation of the cecal apex. Unremarkable colon. CT PELVIS: Uterus and adnexal structures are grossly unremarkable. No pelvic mass, lymphadenopathy, free air, o r free fluid. Decompressed urinary bladder limits evaluation. No lytic or blastic lesions in the osseous structures. IMPRESSION: 1. Mild left-sided obstructive uropathy secondary to calculus in the proximal left ureter. 2. Indeterminate lesion in the upper pole of the right kidney. Nonemergent renal ultrasound. POS: [facility]
== END 2018-07-24 00:38 | disposition home or self-care (01) ==
LOC: ERS 21:28
DX: N20.1 Calculus of ureter (principal); J45.909 Unspecified asthma, uncomplicated; E66.01 Morbid (severe) obesity due to excess calories; Z79.899 Other long term (current) drug therapy
CPT/HCPCS: 36415; 74176; 80053; 81003; 81015; 81025; 85025; 87086; 94760; 96361; 96374; 96375; 96376; J1885; J2405

== ENCOUNTER 2021-06-24 18:22 | Emergency (ER) | payer BC ==
[2021-06-24] MEDS ORDERED: Ketorolac Tromethamine 30 MG/ML VIAL ONE (19:52)
[2021-06-24] MEDS ORDERED: HYDROcodone/Acetaminophen 10/325 mg Tablet ONE (19:53)
== END 2021-06-24 20:06 | disposition home or self-care (01) ==
LOC: ERS 18:22
DX: S39.012A Strain of muscle, fascia and tendon of lower back, initial encounter (principal); J45.909 Unspecified asthma, uncomplicated; E66.01 Morbid (severe) obesity due to excess calories; W18.2XXA Fall in (into) shower or empty bathtub, initial encounter; Z68.45 Body mass index [BMI] 70 or greater, adult
CPT/HCPCS: 96372; 99283; J1885

== ENCOUNTER 2022-08-11 00:40 | Emergency (ER) | payer BC ==
[2022-08-11 03:47] LABS: #Basophils 0.1 thou/uL (0.0-0.2); #Eosinphils 0.1 thou/uL (0.0-0.7); #Lymphocytes 2.5 thou/uL (1.20-3.40); #Monocytes 0.4 thou/uL (0.11-0.59); #Neutrophils 4.9 thou/uL (1.40-6.50); %Basophils 0.7 % (0.0-1.0); %Eosinophils 0.7 % (0.0-10.0); %Lymphocytes 31.2 % (21.0-51.0); %Monocytes 5.1 % (0.0-10.0); %Neutrophils 62.3 % (42.0-75.0); Hemoglobin 11.7 g/dL (12.0-16.0); Mean Corpuscular HGB CONC 32.8 g/dL (32.0-36.0); Mean Corpuscular Hemoglobin 26.1 pg (27.0-31.0); Mean Corpuscular Volume 79.7 fl (78.0-98.0); Mean Platelet Volume 7.1 fL (7.4-10.4); Platelet Count 349 10x3/uL (130-400); RBC Distribution Width 14.7 % (11.5-14.5); Red Blood Cell (RBC) Count 4.46 mill/uL (4.20-5.40); White Blood Cell (WBC) Count 7.9 10x3/uL (4.8-10.8)
[2022-08-11 03:55] LABS: Bacteria/HPF 1+ HPF (None Seen); Bilirubin Negative (Negative); Blood, Urine Negative (Negative); Clarity Clear (Clear); Glucose, Urine (Dipstick) Normal (Negative); Ketone, Urine Negative (Negative); Leukocyte Negative Leu/uL (Negative); Nitrite Negative (Negative); Protein, Urine (Dipstick) Negative (Neg-Trace); RBC/HPF 0-3 HPF (0-3); Squamous Epithelial 0-3 HPF (0-3); Urobilinogen Normal mg/dL (Less than 2)
[2022-08-11 03:56] LABS: Pregnancy Test - Urine (BHCG) Negative (Negative); Pregu Control Background? CLEAR/WHITE (CLR/WHITE); Pregu Control Bar Appear? YES (CONTROL BAR)
[2022-08-11 04:23] LABS: Lactic Acid 2.1 mmol/L (0.5-2.2)
[2022-08-11 04:28] LABS: ALT (SGPT) 11 U/L (8-55); AST (SGOT) 16 U/L (5-34); Albumin 3.8 g/dL (3.5-5.0); Alkaline Phosphatase 127 U/L (40-110); Anion Gap 13 mmol/L (10-20); BUN (Urea Nitrogen) 6 mg/dL (7.0-18.7); Bilirubin, Total 0.4 mg/dL (0.2-1.2); Calc. Creatinine Clearance 0 mL/min (70-130); Calcium 8.5 mg/dL (7.8-10.44); Carbon Dioxide 24 mmol/L (22-29); Chloride 103 mmol/L (98-107); Estimated GFR 99; Globulin 3.2 g/dL (2.4-3.5); Glucose 116 mg/dL (70-105); Potassium 4.2 mmol/L (3.5-5.1); Sodium 136 mmol/L (136-145)
[2022-08-11] MEDS ORDERED: Acetaminophen 500 MG TAB ONE (04:47)
== END 2022-08-11 05:34 | disposition home or self-care (01) ==
LOC: ERS 00:40
DX: M54.9 Dorsalgia, unspecified (principal); E66.01 Morbid (severe) obesity due to excess calories
CPT/HCPCS: 74176; 80053; 81001; 81025; 83605; 85025; 93005

== ENCOUNTER 2022-11-24 21:52 | Emergency (ER) | payer BC ==
[2022-11-24 22:35] LABS: #Basophils 0.1 thou/uL (0.0-0.2); #Eosinphils 0.1 thou/uL (0.0-0.7); #Lymphocytes 2.8 thou/uL (1.20-3.40); #Monocytes 0.5 thou/uL (0.11-0.59); #Neutrophils 4.9 thou/uL (1.40-6.50); %Basophils 0.9 % (0.0-1.0); %Eosinophils 1.7 % (0.0-10.0); %Monocytes 6.2 % (0.0-10.0); %Neutrophils 58.2 % (42.0-75.0); Hemoglobin 11.3 g/dL (12.0-16.0); Mean Corpuscular HGB CONC 31.3 g/dL (32.0-36.0); Mean Corpuscular Hemoglobin 25.1 pg (27.0-31.0); Mean Corpuscular Volume 80.2 fl (78.0-98.0); Platelet Count 399 10x3/uL (130-400); Red Blood Cell (RBC) Count 4.51 mill/uL (4.20-5.40); White Blood Cell (WBC) Count 8.4 10x3/uL (4.8-10.8)
[2022-11-24 22:58] LABS: Bacteria/HPF 3+ HPF (None Seen); Bilirubin Negative (Negative); Blood, Urine 3+ (Negative); Clarity Clear (Clear); Glucose, Urine (Dipstick) Normal (Negative); Ketone, Urine Negative (Negative); Leukocyte Negative Leu/uL (Negative); Nitrite Negative (Negative); Protein, Urine (Dipstick) Negative (Neg-Trace); Specific Gravity, Urine 1.017 (1.002-1.036); Urobilinogen Normal mg/dL (Less than 2); WBC/HPF 0-3 HPF (0-3); pH, Urine 5.5 (5.0-9.0)
[2022-11-24 22:58] LABS: ALT (SGPT) 9 U/L (8-55); AST (SGOT) 16 U/L (5-34); Albumin 3.6 g/dL (3.5-5.0); Alkaline Phosphatase 111 U/L (40-110); Anion Gap 15 mmol/L (10-20); BUN (Urea Nitrogen) 9 mg/dL (7.0-18.7); Bilirubin, Total 0.2 mg/dL (0.2-1.2); Calc. Creatinine Clearance 0 mL/min (70-130); Calcium 8.5 mg/dL (7.8-10.44); Carbon Dioxide 23 mmol/L (22-29); Chloride 107 mmol/L (98-107); Estimated GFR 73; Globulin 3.4 g/dL (2.4-3.5); Glucose 103 mg/dL (70-105); Potassium 4.5 mmol/L (3.5-5.1); Sodium 140 mmol/L (136-145)
[2022-11-24 23:56] LABS: BHCG - Serum Negative (NEGATIVE); Pregs Control Background? CLEAR/WHITE (CLR/WHITE); Pregs Control Bar Appear? YES (CONTROL BAR)
[2022-11-25] MEDS ORDERED: HYDROcodone/Acetaminophen 5/325 mg Tablet ONE (00:35)
[2022-11-25] MEDS ORDERED: Cefepime 1 GM VIAL ONE (01:52)
[2022-11-25] MEDS ORDERED: cefTRIAXone (ROCEPHIN) 1 GM VIAL ONE ×2 (01:52)
[2022-11-25] MEDS ORDERED: Lidocaine 1% MPF 2 ML VIAL ONE (01:53)
== END 2022-11-25 02:12 | disposition home or self-care (01) ==
LOC: ERS 21:52
DX: N12 Tubulo-interstitial nephritis, not specified as acute or chronic (principal)
CPT/HCPCS: 36415; 76770; 80053; 81003; 81015; 84703; 85025; 87086; 96372; J0692; J0696

== ENCOUNTER 2023-03-13 19:07 | Emergency (ER) | payer BC ==
[2023-03-13] MEDS ORDERED: traMADol HCl 50 MG TAB ONE (19:42)
== END 2023-03-13 20:50 | disposition home or self-care (01) ==
LOC: ERS 19:07
DX: S92.351A Displaced fracture of fifth metatarsal bone, right foot, initial encounter for closed fracture (principal); X50.0XXA Overexertion from strenuous movement or load, initial encounter
CPT/HCPCS: 93005

== ENCOUNTER 2023-03-15 19:50 | Emergency (ER) | payer BC | END 2023-03-15 22:40 | disposition home or self-care (01) | LOC: ERS 19:50 | DX: S92.352A Displaced fracture of fifth metatarsal bone, left foot, initial encounter for closed fracture (principal); E66.9 Obesity, unspecified; X50.0XXA Overexertion from strenuous movement or load, initial encounter ==

== ENCOUNTER 2023-12-19 18:53 | Emergency (ER) | payer BC ==
[2023-12-19 19:47] LABS: #Basophils 0.06 10x3/uL (0.0-0.2); %Basophils 0.8 % (0.0-1.0); %Eosinophils 1.7 % (0.0-10.0); %Lymphocytes 36.2 % (21.0-51.0); %Monocytes 5.5 % (0.0-10.0); %Neutrophils 55.5 % (42.0-75.0); Hematocrit 36.6 % (36.0-47.0); Hemoglobin 10.8 g/dL (12.0-16.0); Mean Corpuscular HGB CONC 29.5 g/dL (32.0-36.0); Mean Corpuscular Hemoglobin 22.8 pg (27.0-31.0); Mean Corpuscular Volume 77.2 fL (78.0-98.0); Mean Platelet Volume 9.1 fL (7.4-10.4); Platelet Count 384 10x3/uL (130-400); RBC Distribution Width 16.6 % (11.5-14.5); Red Blood Cell (RBC) Count 4.74 mill/uL (4.20-5.40)
[2023-12-19 20:01] LABS: ALT (SGPT) 23 U/L (8-55); AST (SGOT) 25 U/L (5-34); Albumin 3.2 g/dL (3.5-5.0); Alkaline Phosphatase 99 U/L (40-110); Anion Gap 16 mmol/L (10-20); BUN (Urea Nitrogen) 6 mg/dL (7.0-18.7); Bilirubin, Total 0.4 mg/dL (0.2-1.2); Calc. Creatinine Clearance 0 mL/min (70-130); Calcium 8.5 mg/dL (7.8-10.44); Carbon Dioxide 23 mmol/L (22-29); Chloride 105 mmol/L (98-107); Estimated GFR 87; Globulin 3.8 g/dL (2.4-3.5); Glucose 110 mg/dL (70-105); Potassium 4.1 mmol/L (3.5-5.1); Sodium 140 mmol/L (136-145)
[2023-12-19 20:09] LABS: Troponin I Less than 0.010 ng/mL (< 0.028)
[2023-12-19 20:33] LABS: Magnesium 1.8 mg/dL (1.6-2.6)
[2023-12-19] MEDS ORDERED: Dexamethasone 4 MG TAB ONE (22:13)
[2023-12-19 22:21] LABS: Bilirubin Negative (Negative); Blood, Urine Negative (Negative); CAUTI Indications for Culture Alt mental st,lethar; Clarity Clear (Clear); Glucose, Urine (Dipstick) Normal (Negative); Ketone, Urine Negative (Negative); Leukocyte Negative Leu/uL (Negative); Nitrite Negative (Negative); Protein, Urine (Dipstick) 10 mg/dL (Neg-Trace); RBC/HPF None Seen HPF (0-3); Specific Gravity, Urine 1.016 (1.002-1.036); Squamous Epithelial 0-3 HPF (0-3); Urobilinogen Normal mg/dL (Less than 2); pH, Urine 6.5 (5.0-9.0)
[2023-12-19 22:23] LABS: Bacteria/HPF 1+ HPF (None Seen); Pregnancy Test - Urine (BHCG) Negative (Negative); Urine Culture Reflex No No
[2023-12-19 22:24] LABS: Pregu Control Background? CLEAR/WHITE (CLR/WHITE); Pregu Control Bar Appear? YES (CONTROL BAR); Specific Gravity 1.016 (1.002-1.036)
== END 2023-12-19 23:20 | disposition home or self-care (01) ==
LOC: ERS 18:53
DX: N39.0 Urinary tract infection, site not specified (principal); R07.89 Other chest pain; I10 Essential (primary) hypertension; Z79.899 Other long term (current) drug therapy
CPT/HCPCS: 36415; 71045; 80053; 81001; 81025; 83735; 83880; 84484; 85025; 93005; J8540

== ENCOUNTER 2024-06-03 19:37 | Emergency (ER) | payer BC ==
[2024-06-03 20:18] LABS: Bilirubin Negative (Negative); Blood, Urine Negative (Negative); CAUTI Indications for Culture Pelvic or flank pain; Clarity Clear (Clear); Glucose, Urine (Dipstick) Normal (Negative); Ketone, Urine Negative (Negative); Leukocyte Negative Leu/uL (Negative); Nitrite Negative (Negative); Protein, Urine (Dipstick) Negative (Neg-Trace); RBC/HPF 0-3 HPF (0-3); Squamous Epithelial 0-3 HPF (0-3); Urobilinogen Normal mg/dL (Less than 2); WBC/HPF 0-3 HPF (0-3)
[2024-06-03 20:27] LABS: Bacteria/HPF 1+ HPF (None Seen)
[2024-06-03 20:28] LABS: Urine Culture Reflex No No
[2024-06-03 21:29] LABS: #Basophils 0.06 10x3/uL (0.0-0.2); %Basophils 0.8 % (0.0-1.0); %Eosinophils 0.5 % (0.0-10.0); %Lymphocytes 29.5 % (21.0-51.0); %Monocytes 6.3 % (0.0-10.0); %Neutrophils 62.5 % (42.0-75.0); Hematocrit 37.3 % (36.0-47.0); Hemoglobin 10.9 g/dL (12.0-16.0); Mean Corpuscular HGB CONC 29.2 g/dL (32.0-36.0); Mean Corpuscular Hemoglobin 21.8 pg (27.0-31.0); Mean Corpuscular Volume 74.6 fL (78.0-98.0); Mean Platelet Volume 8.9 fL (7.4-10.4); Platelet Count 434 10x3/uL (130-400); RBC Distribution Width 17.1 % (11.5-14.5)
[2024-06-03 21:40] LABS: ALT (SGPT) 20 U/L (8-55); AST (SGOT) 23 U/L (5-34); Albumin 3.6 g/dL (3.5-5.0); Alkaline Phosphatase 114 U/L (40-110); Anion Gap 14 mmol/L (10-20); BUN (Urea Nitrogen) 7 mg/dL (7.0-18.7); Bilirubin, Total 0.4 mg/dL (0.2-1.2); Calc. Creatinine Clearance 0 mL/min (70-130); Calcium 8.9 mg/dL (7.8-10.44); Carbon Dioxide 24 mmol/L (22-29); Chloride 101 mmol/L (98-107); Estimated GFR 92; Globulin 3.6 g/dL (2.4-3.5); Glucose 107 mg/dL (70-105); Potassium 3.9 mmol/L (3.5-5.1); Protein, Total 7.2 g/dL (6.0-8.3); Sodium 135 mmol/L (136-145)
[2024-06-03 21:44] LABS: Troponin I Less than 0.010 ng/mL (< 0.028)
[2024-06-03 21:53] LABS: Elliptocytes SLIGHT = 2-5 cells HPF (0-1); Microcytosis SLIGHT = 6-15 cells HPF (0-5); Platelet Adequacy Comment Platelets Normal; Polychromasia SLIGHT = 2-3 cells HPF (0-2)
[2024-06-03 22:33] LABS: Amphetamine Not Detected (NotDetected); Barbiturates Screen Not Detected (NotDetected); Benzodiazepine Screen Not Detected (NotDetected); Cocaine Metabolite Screen Not Detected (NotDetected); Methadone Not Detected (NotDetected); Methamphetamine Not Detected (NotDetected); Opiate Screen Not Detected (NotDetected); Oxycodone Screen Not Detected (NotDetected); Phencyclidine (PCP) Not Detected (NotDetected); THC/Cannabinoid Screen Not Detected (NotDetected); Tricyclic Screen Not Detected (NotDetected)
[2024-06-03 23:43] LABS: Troponin I Less than 0.010 ng/mL (< 0.028)
== END 2024-06-04 00:26 | disposition home or self-care (01) ==
LOC: ERS 19:37
DX: I89.0 Lymphedema, not elsewhere classified (principal); R51.9 Headache, unspecified; R06.00 Dyspnea, unspecified; R53.1 Weakness
CPT/HCPCS: 36415; 70450; 71045; 80053; 80306; 81001; 83880; 84484; 85025; 85379; 93005